=== PATIENT | male | born 1995 | race Two or more races ===

== ENCOUNTER 2019-09-06 07:53 | Outpatient (CLI) | payer OTHER ==
[~2019-09-06 07:53] MED LIST: ACID1TAB7 PO; CALC1TAB68 PO; DOCU100C33 PO
[2019-09-06] MEDS ORDERED: WHEA236P PO (08:18)
[2019-09-06] MEDS ORDERED: SIME180C44 PO (08:18)
== END 2019-09-06 23:59 | disposition home or self-care (01) ==
LOC: STAR 07:53
PROVIDERS: ATTEND Surgery
DX: Z02.9 Encounter for administrative examinations, unspecified (principal)

== ENCOUNTER 2019-09-22 07:37 | Day surgery (SDC) | payer OTHER ==
[~2019-09-22] VITALS: Ht 172.7 cm; Wt 67.2 kg
[~2019-09-22 07:37] MED LIST changes: +SIME180C44 PO; +WHEA236P PO
[2019-09-22 07:58] VITALS: BP 105/70
[2019-09-22] MEDS ORDERED: LACTATED RINGERS 1,000 ML IV SCH ×2 (08:00→10:06)
[2019-09-22] MEDS ORDERED: ACETAMINOPHEN 500 MG TABLET ONE (08:03)
[2019-09-22] MEDS ORDERED: GABAPENTIN 300 MG CAPSULE ONE (08:04)
[2019-09-22] MEDS ORDERED: OXYB5TAB10 PO (08:14)
[2019-09-22] MEDS ORDERED: GABAPENTIN 300 MG CAPSULE PO ONE (08:30)
[2019-09-22] MEDS ORDERED: ACETAMINOPHEN 500 MG TABLET PO ONE (08:30)
[2019-09-22] MEDS ORDERED: BUPIVACAINE/PF 0.5% ONE (09:19)
[2019-09-22] MEDS ORDERED: EPINEPHRINE 1 MG/ML, 1ML ONE (09:19)
[2019-09-22] MEDS ORDERED: MIDAZOLAM 1 MG/ML, 2ML ONE (09:25)
[2019-09-22] MEDS ORDERED: FENTANYL PF 250 MCG/5ML ONE (09:26)
[2019-09-22] MEDS ORDERED: OXYcodone 5 MG/5 ML ORAL.SOL UDC PO PRN (09:30)
[2019-09-22] MEDS ORDERED: PROMETHAZINE 25 MG/ML, 1ML IV PRN (09:30)
[2019-09-22] MEDS ORDERED: FENTANYL PF 100 MCG/2ML IV PRN (09:30)
[2019-09-22] MEDS ORDERED: HYDROmorphone 2 MG/ML, 1ML IVPush PRN (09:30)
[2019-09-22] MEDS ORDERED: hydrALAzine 20 MG/ML, 1ML IV PRN (09:30)
[2019-09-22] MEDS ORDERED: HALOPERIDOL 5 MG/ML IV PRN (09:30)
[2019-09-22] MEDS ORDERED: LABETALOL 5MG/ML, 20ML IV PRN (09:30)
[2019-09-22] MEDS ORDERED: ROCURONIUM 10MG/ML,5ML ONE (10:00)
[2019-09-22] MEDS ORDERED: GLYCOPYRROLATE 0.2MG/1ML, 5ML ONE (10:00)
[2019-09-22] MEDS ORDERED: ONDANSETRON 2MG/ML, 2ML ONE (10:00)
[2019-09-22] MEDS ORDERED: CEFAZOLIN 1,000 MG ONE (10:00)
[2019-09-22] MEDS ORDERED: DEXAMETHASONE 4 MG/ML, 1ML ONE (10:00)
[2019-09-22] MEDS ORDERED: PROPOFOL 10 MG/ML, 20ML ONE (10:00)
[2019-09-22] MEDS ORDERED: SUCCINYLCHOLINE 20 MG/ML, 10ML ONE (10:00)
[2019-09-22] MEDS ORDERED: NEOSTIGMINE 1 MG/ML, 10ML ONE (10:00)
[2019-09-22] MEDS ORDERED: MEPERIDINE/PF 25MG/ML,1ML ONE ×2 (10:17→10:30)
[2019-09-22] MEDS ORDERED: FENTANYL PF 100 MCG/2ML ONE (10:24)
[2019-09-22] MEDS ORDERED: OXYcodone 5 MG/5 ML ORAL.SOL UDC ONE (10:24)
[2019-09-22] MEDS: MEPERIDINE/PF 25MG/ML,1ML IVPush PRN ×2 (10:27→10:38)
[2019-09-22] MEDS ORDERED: morphine SULFATE 10 MG/ML, 1ML IVPush PRN (10:30)
[2019-09-22] MEDS ORDERED: PROMETHAZINE 25 MG/ML, 1ML IM PRN (10:30)
[2019-09-22] MEDS ORDERED: ONDANSETRON 2MG/ML, 2ML IVPush PRN (10:30)
== END 2019-09-22 12:05 | disposition home or self-care (01) ==
LOC: OUT 07:37
PROVIDERS: ATTEND Surgery
DX: L05.91 Pilonidal cyst without abscess (principal); Z87.891 Personal history of nicotine dependence
CPT/HCPCS: 11771; 88304; J0171; J0330; J0690; J1100; J2175; J2250; J2405; J2704; J3010; J7120; J2710

== ENCOUNTER 2019-09-27 08:52 | Outpatient (CLI) | payer OTHER ==
[~2019-09-27 08:52] MED LIST changes: +OXYB5TAB10 PO
== END 2019-09-27 23:59 | disposition home or self-care (01) ==
LOC: WOUND 08:52
PROVIDERS: ATTEND Internal Medicine
DX: T81.31XA Disruption of external operation (surgical) wound, not elsewhere classified, initial encounter (principal); L05.91 Pilonidal cyst without abscess; Z87.891 Personal history of nicotine dependence; Y83.8 Other surgical procedures as the cause of abnormal reaction of the patient, or of later complication, without mention of misadventure at the time of the procedure; Y92.89 Other specified places as the place of occurrence of the external cause
CPT/HCPCS: 11043; 99214

== ENCOUNTER 2019-09-29 14:33 | Outpatient (CLI) | payer OTHER | END 2019-09-29 23:59 | disposition home or self-care (01) | LOC: WOUND 14:33 | PROVIDERS: ATTEND Family Medicine | DX: T81.31XD Disruption of external operation (surgical) wound, not elsewhere classified, subsequent encounter (principal); L05.91 Pilonidal cyst without abscess; Z87.891 Personal history of nicotine dependence; Y83.8 Other surgical procedures as the cause of abnormal reaction of the patient, or of later complication, without mention of misadventure at the time of the procedure | CPT/HCPCS: 97605 ==

== ENCOUNTER 2019-10-02 14:52 | Outpatient (CLI) | payer OTHER | END 2019-10-02 23:59 | disposition home or self-care (01) | LOC: WOUND 14:52 | PROVIDERS: ATTEND Internal Medicine | DX: T81.31XD Disruption of external operation (surgical) wound, not elsewhere classified, subsequent encounter (principal); L05.91 Pilonidal cyst without abscess; Z87.891 Personal history of nicotine dependence; Y83.8 Other surgical procedures as the cause of abnormal reaction of the patient, or of later complication, without mention of misadventure at the time of the procedure | CPT/HCPCS: 97605 ==

== ENCOUNTER → 2019-10-04 | Outpatient (CLI) | payer OTHER | END | disposition home or self-care (01) | LOC: WOUND 14:10 | PROVIDERS: ATTEND Internal Medicine | DX: T81.31XD Disruption of external operation (surgical) wound, not elsewhere classified, subsequent encounter (principal); L05.91 Pilonidal cyst without abscess; Z87.891 Personal history of nicotine dependence; Y83.8 Other surgical procedures as the cause of abnormal reaction of the patient, or of later complication, without mention of misadventure at the time of the procedure | CPT/HCPCS: 97605 ==

== ENCOUNTER 2019-10-06 14:20 | Outpatient (CLI) | payer OTHER | END 2019-10-06 23:59 | disposition home or self-care (01) | LOC: WOUND 14:20 | PROVIDERS: ATTEND Internal Medicine | DX: T81.31XD Disruption of external operation (surgical) wound, not elsewhere classified, subsequent encounter (principal); L05.91 Pilonidal cyst without abscess; Z87.891 Personal history of nicotine dependence; Y83.8 Other surgical procedures as the cause of abnormal reaction of the patient, or of later complication, without mention of misadventure at the time of the procedure | CPT/HCPCS: 97605 ==

== ENCOUNTER → 2019-10-09 | Outpatient (CLI) | payer OTHER | END | disposition home or self-care (01) | LOC: WOUND 14:42 | PROVIDERS: ATTEND Internal Medicine | DX: T81.31XD Disruption of external operation (surgical) wound, not elsewhere classified, subsequent encounter (principal); L05.91 Pilonidal cyst without abscess; Z87.891 Personal history of nicotine dependence; Y83.8 Other surgical procedures as the cause of abnormal reaction of the patient, or of later complication, without mention of misadventure at the time of the procedure | CPT/HCPCS: 99214 ==

== ENCOUNTER 2019-10-11 14:57 | Outpatient (CLI) | payer OTHER | END 2019-10-11 23:59 | disposition home or self-care (01) | LOC: WOUND 14:57 | PROVIDERS: ATTEND Internal Medicine | DX: T81.31XD Disruption of external operation (surgical) wound, not elsewhere classified, subsequent encounter (principal); L05.91 Pilonidal cyst without abscess; Z87.891 Personal history of nicotine dependence; Y83.8 Other surgical procedures as the cause of abnormal reaction of the patient, or of later complication, without mention of misadventure at the time of the procedure | CPT/HCPCS: 99213 ==

== ENCOUNTER 2019-10-13 14:34 | Outpatient (CLI) | payer OTHER | END 2019-10-13 23:59 | disposition home or self-care (01) | LOC: WOUND 14:34 | PROVIDERS: ATTEND Family Medicine | DX: T81.31XD Disruption of external operation (surgical) wound, not elsewhere classified, subsequent encounter (principal); Z87.891 Personal history of nicotine dependence; Y83.8 Other surgical procedures as the cause of abnormal reaction of the patient, or of later complication, without mention of misadventure at the time of the procedure | CPT/HCPCS: 99213 ==

== ENCOUNTER → 2019-10-16 | Outpatient (CLI) | payer OTHER | END | disposition home or self-care (01) | LOC: WOUND 10:01 | PROVIDERS: ATTEND Internal Medicine | DX: T81.31XD Disruption of external operation (surgical) wound, not elsewhere classified, subsequent encounter (principal); L05.91 Pilonidal cyst without abscess; Z87.891 Personal history of nicotine dependence; Y83.8 Other surgical procedures as the cause of abnormal reaction of the patient, or of later complication, without mention of misadventure at the time of the procedure | CPT/HCPCS: 11042 ==

== ENCOUNTER 2019-10-18 14:51 | Outpatient (CLI) | payer OTHER | END 2019-10-18 23:59 | disposition home or self-care (01) | LOC: WOUND 14:51 | PROVIDERS: ATTEND Internal Medicine | DX: T81.31XD Disruption of external operation (surgical) wound, not elsewhere classified, subsequent encounter (principal); L05.91 Pilonidal cyst without abscess; Z87.891 Personal history of nicotine dependence; Y83.8 Other surgical procedures as the cause of abnormal reaction of the patient, or of later complication, without mention of misadventure at the time of the procedure | CPT/HCPCS: 99214 ==

== ENCOUNTER → 2019-10-23 | Outpatient (CLI) | payer OTHER | END | disposition home or self-care (01) | LOC: WOUND 13:57 | PROVIDERS: ATTEND Internal Medicine | DX: T81.31XD Disruption of external operation (surgical) wound, not elsewhere classified, subsequent encounter (principal); L05.91 Pilonidal cyst without abscess; Z87.891 Personal history of nicotine dependence; Y83.8 Other surgical procedures as the cause of abnormal reaction of the patient, or of later complication, without mention of misadventure at the time of the procedure | CPT/HCPCS: 97597 ==

== ENCOUNTER → 2019-10-25 | Outpatient (CLI) | payer OTHER | END | disposition home or self-care (01) | LOC: WOUND 08:16 | PROVIDERS: ATTEND Internal Medicine | DX: T81.31XD Disruption of external operation (surgical) wound, not elsewhere classified, subsequent encounter (principal); L05.01 Pilonidal cyst with abscess; Z87.891 Personal history of nicotine dependence; Y83.8 Other surgical procedures as the cause of abnormal reaction of the patient, or of later complication, without mention of misadventure at the time of the procedure | CPT/HCPCS: 99213 ==

== ENCOUNTER → 2019-10-30 | Outpatient (CLI) | payer OTHER | END | disposition home or self-care (01) | LOC: WOUND 14:18 | PROVIDERS: ATTEND Internal Medicine | DX: T81.31XD Disruption of external operation (surgical) wound, not elsewhere classified, subsequent encounter (principal); Z87.891 Personal history of nicotine dependence; Y83.8 Other surgical procedures as the cause of abnormal reaction of the patient, or of later complication, without mention of misadventure at the time of the procedure | CPT/HCPCS: 97597 ==

== ENCOUNTER → 2019-11-06 | Outpatient (CLI) | payer OTHER | END | disposition home or self-care (01) | LOC: WOUND 14:37 | PROVIDERS: ATTEND Internal Medicine | DX: T81.31XD Disruption of external operation (surgical) wound, not elsewhere classified, subsequent encounter (principal); Z87.891 Personal history of nicotine dependence; Y83.8 Other surgical procedures as the cause of abnormal reaction of the patient, or of later complication, without mention of misadventure at the time of the procedure | CPT/HCPCS: 97597 ==

== ENCOUNTER → 2019-11-20 | Outpatient (CLI) | payer OTHER | END | disposition home or self-care (01) | LOC: WOUND 14:32 | PROVIDERS: ATTEND Internal Medicine | DX: T81.31XD Disruption of external operation (surgical) wound, not elsewhere classified, subsequent encounter (principal); L05.01 Pilonidal cyst with abscess; Z87.891 Personal history of nicotine dependence; Y83.8 Other surgical procedures as the cause of abnormal reaction of the patient, or of later complication, without mention of misadventure at the time of the procedure | CPT/HCPCS: 97597 ==

== ENCOUNTER 2019-12-04 11:02 | Outpatient (CLI) | payer OTHER | END 2019-12-04 23:59 | disposition home or self-care (01) | LOC: WOUND 11:02 | PROVIDERS: ATTEND Internal Medicine | DX: T81.31XD Disruption of external operation (surgical) wound, not elsewhere classified, subsequent encounter (principal); L05.01 Pilonidal cyst with abscess; Z87.891 Personal history of nicotine dependence; Y83.8 Other surgical procedures as the cause of abnormal reaction of the patient, or of later complication, without mention of misadventure at the time of the procedure | CPT/HCPCS: 99214 ==

== ENCOUNTER → 2019-12-18 | Outpatient (CLI) | payer OTHER | END | disposition home or self-care (01) | LOC: WOUND 08:15 | PROVIDERS: ATTEND Internal Medicine | DX: T81.31XD Disruption of external operation (surgical) wound, not elsewhere classified, subsequent encounter (principal); L05.01 Pilonidal cyst with abscess; Z87.891 Personal history of nicotine dependence; Y83.8 Other surgical procedures as the cause of abnormal reaction of the patient, or of later complication, without mention of misadventure at the time of the procedure | CPT/HCPCS: 97597 ==

== ENCOUNTER → 2020-01-01 | Outpatient (CLI) | payer OTHER | END | disposition home or self-care (01) | LOC: WOUND 08:00 | PROVIDERS: ATTEND Internal Medicine | DX: T81.31XD Disruption of external operation (surgical) wound, not elsewhere classified, subsequent encounter (principal); L05.01 Pilonidal cyst with abscess; Z87.891 Personal history of nicotine dependence; Y83.8 Other surgical procedures as the cause of abnormal reaction of the patient, or of later complication, without mention of misadventure at the time of the procedure | CPT/HCPCS: 97597 ==

== ENCOUNTER → 2020-01-15 | Outpatient (CLI) | payer OTHER | END | disposition home or self-care (01) | LOC: WOUND 07:56 | PROVIDERS: ATTEND Internal Medicine | DX: T81.31XD Disruption of external operation (surgical) wound, not elsewhere classified, subsequent encounter (principal); L05.01 Pilonidal cyst with abscess; Z87.891 Personal history of nicotine dependence; Y83.8 Other surgical procedures as the cause of abnormal reaction of the patient, or of later complication, without mention of misadventure at the time of the procedure | CPT/HCPCS: 97597 ==

== ENCOUNTER 2020-01-29 08:33 | Outpatient (CLI) | payer OTHER | END 2020-01-29 23:59 | disposition home or self-care (01) | LOC: WOUND 08:33 | PROVIDERS: ATTEND Internal Medicine | DX: T81.31XD Disruption of external operation (surgical) wound, not elsewhere classified, subsequent encounter (principal); L05.01 Pilonidal cyst with abscess; Z87.891 Personal history of nicotine dependence; Y83.8 Other surgical procedures as the cause of abnormal reaction of the patient, or of later complication, without mention of misadventure at the time of the procedure | CPT/HCPCS: C5271; Q4118; 15271 ==

== ENCOUNTER 2020-02-05 08:37 | Outpatient (CLI) | payer OTHER | END 2020-02-05 23:59 | disposition home or self-care (01) | LOC: WOUND 08:37 | PROVIDERS: ATTEND Internal Medicine | DX: T81.31XD Disruption of external operation (surgical) wound, not elsewhere classified, subsequent encounter (principal); L05.01 Pilonidal cyst with abscess; Z87.891 Personal history of nicotine dependence; Y83.8 Other surgical procedures as the cause of abnormal reaction of the patient, or of later complication, without mention of misadventure at the time of the procedure | CPT/HCPCS: C5271; Q4118; C5272 ==

== ENCOUNTER 2020-02-07 09:30 | Outpatient (CLI) | payer OTHER | END 2020-02-07 23:59 | disposition home or self-care (01) | LOC: WOUND 09:30 | PROVIDERS: ATTEND Internal Medicine | DX: T81.31XD Disruption of external operation (surgical) wound, not elsewhere classified, subsequent encounter (principal); L05.01 Pilonidal cyst with abscess; Z87.891 Personal history of nicotine dependence; Y83.8 Other surgical procedures as the cause of abnormal reaction of the patient, or of later complication, without mention of misadventure at the time of the procedure | CPT/HCPCS: 99213 ==

== ENCOUNTER → 2020-02-12 | Outpatient (CLI) | payer OTHER | END | disposition home or self-care (01) | LOC: WOUND 08:28 | PROVIDERS: ATTEND Internal Medicine | DX: T81.31XD Disruption of external operation (surgical) wound, not elsewhere classified, subsequent encounter (principal); L05.01 Pilonidal cyst with abscess; Z87.891 Personal history of nicotine dependence; Y83.8 Other surgical procedures as the cause of abnormal reaction of the patient, or of later complication, without mention of misadventure at the time of the procedure | CPT/HCPCS: 97597 ==

== ENCOUNTER → 2020-02-21 | Outpatient (CLI) | payer OTHER | END | disposition home or self-care (01) | LOC: WOUND 08:25 | PROVIDERS: ATTEND Internal Medicine | DX: T81.31XD Disruption of external operation (surgical) wound, not elsewhere classified, subsequent encounter (principal); L05.01 Pilonidal cyst with abscess; Z87.891 Personal history of nicotine dependence; Y83.8 Other surgical procedures as the cause of abnormal reaction of the patient, or of later complication, without mention of misadventure at the time of the procedure | CPT/HCPCS: 97597 ==

== ENCOUNTER 2020-02-26 08:44 | Outpatient (CLI) | payer OTHER | END 2020-02-26 23:59 | disposition home or self-care (01) | LOC: WOUND 08:44 | PROVIDERS: ATTEND Internal Medicine | DX: T81.31XD Disruption of external operation (surgical) wound, not elsewhere classified, subsequent encounter (principal); L05.01 Pilonidal cyst with abscess; Z87.891 Personal history of nicotine dependence; Y83.8 Other surgical procedures as the cause of abnormal reaction of the patient, or of later complication, without mention of misadventure at the time of the procedure | CPT/HCPCS: 97597 ==

== ENCOUNTER → 2020-03-04 | Outpatient (CLI) | payer OTHER | END | disposition home or self-care (01) | LOC: WOUND 07:50 | PROVIDERS: ATTEND Internal Medicine | DX: T81.31XD Disruption of external operation (surgical) wound, not elsewhere classified, subsequent encounter (principal); L05.01 Pilonidal cyst with abscess; Z87.891 Personal history of nicotine dependence; Y83.8 Other surgical procedures as the cause of abnormal reaction of the patient, or of later complication, without mention of misadventure at the time of the procedure | CPT/HCPCS: 97597 ==

== ENCOUNTER → 2020-03-11 | Outpatient (CLI) | payer OTHER | END | disposition home or self-care (01) | LOC: WOUND 10:00 | PROVIDERS: ATTEND Internal Medicine | DX: T81.31XD Disruption of external operation (surgical) wound, not elsewhere classified, subsequent encounter (principal); L05.01 Pilonidal cyst with abscess; Z87.891 Personal history of nicotine dependence; Y83.8 Other surgical procedures as the cause of abnormal reaction of the patient, or of later complication, without mention of misadventure at the time of the procedure | CPT/HCPCS: 97597 ==

== ENCOUNTER → 2020-03-18 | Outpatient (CLI) | payer OTHER | END | disposition home or self-care (01) | LOC: WOUND 08:15 | PROVIDERS: ATTEND Internal Medicine Cardiovascular Disease | DX: T81.31XD Disruption of external operation (surgical) wound, not elsewhere classified, subsequent encounter (principal); L05.01 Pilonidal cyst with abscess; Z87.891 Personal history of nicotine dependence; Y83.8 Other surgical procedures as the cause of abnormal reaction of the patient, or of later complication, without mention of misadventure at the time of the procedure | CPT/HCPCS: 99213 ==

== ENCOUNTER 2020-03-25 10:01 | Outpatient (CLI) | payer OTHER | END 2020-03-25 23:59 | disposition home or self-care (01) | LOC: WOUND 10:01 | PROVIDERS: ATTEND Internal Medicine | DX: T81.31XD Disruption of external operation (surgical) wound, not elsewhere classified, subsequent encounter (principal); L05.01 Pilonidal cyst with abscess; Z87.891 Personal history of nicotine dependence; Y83.8 Other surgical procedures as the cause of abnormal reaction of the patient, or of later complication, without mention of misadventure at the time of the procedure | CPT/HCPCS: 97597 ==

== ENCOUNTER → 2020-04-08 | Outpatient (CLI) | payer OTHER | END | disposition home or self-care (01) | LOC: WOUND 08:59 | PROVIDERS: ATTEND Internal Medicine | DX: T81.31XD Disruption of external operation (surgical) wound, not elsewhere classified, subsequent encounter (principal); L05.01 Pilonidal cyst with abscess; Z87.891 Personal history of nicotine dependence; Y83.8 Other surgical procedures as the cause of abnormal reaction of the patient, or of later complication, without mention of misadventure at the time of the procedure | CPT/HCPCS: 97597 ==

== ENCOUNTER → 2020-04-22 | Outpatient (CLI) | payer OTHER | END | disposition home or self-care (01) | LOC: WOUND 08:40 | PROVIDERS: ATTEND Internal Medicine | DX: T81.31XD Disruption of external operation (surgical) wound, not elsewhere classified, subsequent encounter (principal); L05.01 Pilonidal cyst with abscess; Z87.891 Personal history of nicotine dependence; Y83.8 Other surgical procedures as the cause of abnormal reaction of the patient, or of later complication, without mention of misadventure at the time of the procedure | CPT/HCPCS: 97597 ==

== ENCOUNTER → 2020-05-01 | Outpatient (CLI) | payer OTHER | END | disposition home or self-care (01) | LOC: WOUND 14:44 | PROVIDERS: ATTEND Internal Medicine | DX: T81.31XD Disruption of external operation (surgical) wound, not elsewhere classified, subsequent encounter (principal); L05.01 Pilonidal cyst with abscess; Z87.891 Personal history of nicotine dependence; Y83.8 Other surgical procedures as the cause of abnormal reaction of the patient, or of later complication, without mention of misadventure at the time of the procedure | CPT/HCPCS: 97597 ==

== ENCOUNTER → 2020-05-08 | Outpatient (CLI) | payer OTHER | END | disposition home or self-care (01) | LOC: WOUND 11:07 | PROVIDERS: ATTEND Internal Medicine | DX: T81.31XD Disruption of external operation (surgical) wound, not elsewhere classified, subsequent encounter (principal); L05.01 Pilonidal cyst with abscess; Z87.891 Personal history of nicotine dependence; Y83.8 Other surgical procedures as the cause of abnormal reaction of the patient, or of later complication, without mention of misadventure at the time of the procedure | CPT/HCPCS: 97597 ==

== ENCOUNTER → 2020-05-13 | Outpatient (CLI) | payer OTHER | END | disposition home or self-care (01) | LOC: WOUND 13:35 | PROVIDERS: ATTEND Internal Medicine | DX: T81.31XD Disruption of external operation (surgical) wound, not elsewhere classified, subsequent encounter (principal); L05.01 Pilonidal cyst with abscess; Z87.891 Personal history of nicotine dependence; Y83.8 Other surgical procedures as the cause of abnormal reaction of the patient, or of later complication, without mention of misadventure at the time of the procedure | CPT/HCPCS: 97597 ==

== ENCOUNTER 2020-05-27 13:40 | Outpatient (CLI) | payer OTHER | END 2020-05-27 23:59 | disposition home or self-care (01) | LOC: WOUND 13:40 | PROVIDERS: ATTEND Internal Medicine | DX: T81.31XD Disruption of external operation (surgical) wound, not elsewhere classified, subsequent encounter (principal); L05.01 Pilonidal cyst with abscess; Z87.891 Personal history of nicotine dependence; Y83.8 Other surgical procedures as the cause of abnormal reaction of the patient, or of later complication, without mention of misadventure at the time of the procedure | CPT/HCPCS: 97597 ==